=== PATIENT | female | born 1960 | race Caucasian/White ===

== ENCOUNTER 2018-09-21 14:58 | Emergency (ER) | payer OTHER ==
[2018-09-21] MEDS ORDERED: EPINEPHrine 1 MG/ML AMP IM STA (15:10)
[2018-09-21] MEDS ORDERED: DEXAMETHASONE 10 MG/ML VIAL IVP STA (15:11)
[2018-09-21] MEDS ORDERED: SODIUM CHLORIDE 0.9% 1,000 ML IV ONE ×3 (15:11→16:43)
--- NOTE | 2018-09-21 15:14 | ED Physician Documentation ---
History of Present Illness - Stated complaint Stated Complaint: ALLERGIC REACTION - Chief complaint Chief Complaint: Abd Pain - History obtained from History obtained from: Patient, Family - History of Present Illness Timing: Today - Additonal information Additional information: 58 y/o female consumed muscles this afternoon and has developed acute abdominal pain, swelling in the throat, trouble breathing, pain in the back of the neck and trembling. She has had clams and shrimp previously. She has not vomited. Review of Systems Constitutional: denies: Fever Eyes: denies: Decreased vision Ears: denies: Ear pain Nose: denies: Rhinorrhea / runny nose, Congestion Throat: reports: Sore throat Cardiac: denies: Chest pain / pressure, Palpitations Respiratory: reports: Dyspnea. denies: Cough, Wheezing GI: reports: Abdominal Pain, Nausea. denies: Vomiting : denies: Dysuria, Frequency PD PAST MEDICAL HISTORY - Present Medications Home Medications: Ambulatory Orders Medication Instructions Recorded Confirmed Biotin 5 09/21/18 Epinephrine [Epipen 2-Luke] 0.3 mg IJ ONCE PRN #1 auto.injct 09/21/18 Lisinopril 40 09/21/18 Meloxicam 15 09/21/18 Spironolactone 50 09/21/18 Venlafaxine [Effexor] 75 09/21/18 predniSONE [Deltasone] 10 mg PO DAILY #26 tablet 09/21/18 - Allergies Allergies/Adverse Reactions: Allergies Allergy/AdvReac Type Severity Reaction Status Date / Time mussels Allergy Anaphylaxis Verified 09/21/18 15:11 PD ED PE NORMAL - Vitals Vital signs reviewed: Yes (tachy and hypotensive ) - General General: Alert and oriented X 3, Well developed/nourished, Other (appears acutely anxious ) - HEENT HEENT: Atraumatic, PERRL, EOMI, Other (There is dense erythema to the tonsils more on the right than the left. ) - Neck Neck: Supple, no meningeal sign, No bony TTP - Cardiac Cardiac: No murmur, Other (tachy to 130) - Respiratory Respiratory: Other (tachypneic at rest with fair air movement. ) - Abdomen Abdomen: Soft, Other (epigastric tenderness to palpation without garding. ) - Back Back: No CVA TTP, No spinal TTP - Derm Derm: Normal color, Warm and dry, No rash - Extremities Extremities: No deformity, No edema - Neuro Neuro: Alert and oriented X 3, knitted cloth examiner 2-12 intact, No motor deficit, No sensory deficit, Normal speech Eye Opening: Spontaneous Motor: Obeys Commands Verbal: Oriented GCS Score: 15 - Psych Psych: Normal mood, Normal affect Results - Vitals Vitals: Vital Signs - 24 hr 09/21/18 09/21/18 09/21/18 15:07 15:21 15:37 Temperature 35.1 C L Heart Rate 134 H 115 H 130 H Respiratory 24 32 H 18 Rate Blood Pressure 84/74 L 100/76 114/101 H O2 Saturation 98 96 96 09/21/18 09/21/18 09/21/18 15:50 16:34 17:25 Temperature Heart Rate 115 H 110 H 111 H Respiratory 19 20 18 Rate Blood Pressure 100/69 100/64 121/77 O2 Saturation 97 98 98 Oxygen O2 Source Room air - Labs Labs: Laboratory Tests 09/21/18 16:19 POC Whole Bld Glucose 151 H PD MEDICAL DECISION MAKING - ED course Complexity details: reviewed results, re-evaluated patient, considered differential, d/w patient, d/w family ED course: 58 y/o female with ingestion of muscles has developed an anaphylactic reaction and arrives tachy and hypotensive with hyperventilation and swelling to the posterior pharynx. She responds well to IM epi 0.3mg and she is administered IV saline, decadron 10 and glucagon 2mg IV. We were hoping to cause emesis with the glucagon and this did not occur. She had a large BM and she began to feel improved her heart rate decreased to the 110 range and her blood pressure over 110 systolic. She began to feel chilled inside and began to hyperventilate and we checked blood sugar at 150. She had a second BM. Patient begins to feel much improved and she is wanting to go home. Departure - Departure Disposition: 01 Home, Self Care Clinical Impression: Anaphylaxis due to food Qualifiers: Encounter type: initial encounter Qualified Code(s): T78.00XA - Anaphylactic reaction due to unspecified food, initial encounter Instructions: ED Anaphylaxis General, ED Allergic React Food Follow-Up: Your, doctor [Other] Prescriptions: Epinephrine [Epipen 2-Luke] 0.3 mg IJ ONCE PRN #1 auto.injct PRN Reason: Anaphylaxis predniSONE [Deltasone] 10 mg PO DAILY #26 tablet
[2018-09-21] MEDS ORDERED: GLUCAGON 1 MG/ML VIAL IVP STA (15:28)
[2018-09-21] MEDS ORDERED: WATER FOR INJECTION,STERILE 10 ML ONE (15:35)
[2018-09-21] MEDS ORDERED: DEXTROSE 50% ABBOJECT 25 GM/50 ML SYRINGE ONE (16:20)
[2018-09-21] MEDS ORDERED: LORazepam 2 MG/ML VIAL IVP STA (16:40)
[2018-09-21 17:26] VITALS: BP 121/77
== END 2018-09-21 17:50 | disposition home or self-care (01) ==
LOC: ED 14:58
DX: T78.03XA Anaphylactic reaction due to other fish, initial encounter (principal); X58.XXXA Exposure to other specified factors, initial encounter; R00.0 Tachycardia, unspecified; R06.4 Hyperventilation
CPT/HCPCS: 96361; 96372; 96374; 96375; 99283; 99284; J2060